=== PATIENT | female | born 1980 | race Caucasian/White ===

== ENCOUNTER 2019-10-24 11:31 | Emergency (ER) | payer OTHER ==
[~2019-10-24] VITALS: Ht 162.6 cm; Wt 73.9 kg
[2019-10-24] MEDS ORDERED: KETOROLAC 30 MG/ML VIAL. IVP ONE (12:15)
[2019-10-24 12:16] LABS: BASO # 0.1 x10^3/uL (0.0-0.2); BASO % 1 % (0-3); EOS # 0.1 x10^3/uL (0.0-0.7); EOS % 1 % (0-3); HEMOGLOBIN 14.2 g/dL (12.0-15.5); LYMPH # 1.6 x10^3/uL (1.0-4.8); LYMPH % 22 % (24-48); MEAN CORPUSCULAR HEMOGLOBIN 33 pg (25-35); MEAN CORPUSCULAR HGB CONC 34 g/dL (31-37); MEAN CORPUSCULAR VOLUME 97 fL (79-100); MONO # 0.6 x10^3/uL (0.0-1.1); MONO % 9 % (0-9); NEUT % 67 % (31-73); PLATELET COUNT 263 x10^3/uL (140-400); RED BLOOD COUNT 4.35 x10^6/uL (3.50-5.40); WHITE BLOOD COUNT 7.4 x10^3/uL (4.0-11.0)
[2019-10-24 12:25] LABS: CREATININE 0.7 mg/dL (0.6-1.0); GFR 92.7; POTASSIUM 3.7 mmol/L (3.5-5.1)
[2019-10-24 12:31] LABS: ALBUMIN 3.9 g/dL (3.4-5.0); ALBUMIN/GLOBULIN RATIO 1.1 (1.0-1.7); TOTAL BILIRUBIN 0.6 mg/dL (0.2-1.0); TOTAL PROTEIN 7.6 g/dL (6.4-8.2)
[2019-10-24] MEDS ORDERED: IOHEXOL 300 MG/ML 75 ML VIAL. IV ONE (12:45)
--- NOTE | 2019-10-24 13:08 | RAD ---
EXAM: Abdomen and pelvis CT with intravenous contrast. HISTORY: Pain. TECHNIQUE: Computed tomographic images of the abdomen and pelvis were obtained following the administration of intravenous contrast. Multiplanar reformatting was performed. *One or more of the following individualized dose reduction techniques were utilized for this examination: 1. Automated exposure control. 2. Adjustment of the mA and/or kV according to patient size. 3. Use of iterative reconstruction technique. COMPARISON: None. FINDINGS: Evaluation of the lower thorax demonstrates no infiltrate or pleural effusion. There are endplate of breast prostheses. There is posterior dependent atelectasis. The heart is normal in size. There are multiple hypodense lesions within the liver, the largest of which is seen within the inferior right hepatic lobe measuring 3.1 cm. The gallbladder, pancreas, stomach and adrenal glands are unremarkable. The spleen is upper normal in size. There is a dilated appendix with wall thickening and surrounding fatty stranding and trace fluid, consistent with acute appendicitis. No free air or drainable fluid collection/abscess is seen. There is no evidence of bowel obstruction. The uterus is unremarkable. There is a suspected complex left ovarian cyst or adjacent dominant follicular cysts within the left ovary measuring 3.0 cm in conglomerate. There is a prominent bilateral renal collecting system without evidence of an obstructing lesion. This may be due to the hydration status of the patient. There is no gio hydronephrosis. The aorta is normal in caliber. There is no lymphadenopathy. There is no suspicious osseous lesion. There are few benign bone islands. IMPRESSION: 1. Acute appendicitis. There is no evidence of perforation or abscess. 2. Multiple hypodense lesions throughout the liver. In the absence of known malignancy, these are likely cysts. The smallest lesions are too small to characterize, the possibility of tiny hemangiomas is not excluded. 3. Suspected 3.0 cm complex left ovarian cyst or adjacent left ovarian dominant follicles. 4. Prominent bilateral renal collecting system, without gio hydronephrosis. This can be due to the hydration status of the patient. Electronically signed by: Tasha Shannon MD (10/24/2019 1:05 PM) [place] [id number]
[2019-10-24] MEDS ORDERED: PIPERACILLIN/TAZOBACTAM 3.375 GM VIAL IV ONE (13:15)
[2019-10-24] MEDS ORDERED: PIPERACILLIN/TAZOBACTAM 3.375 GM in IV NORMAL SALINE 50ML 50 ML IV ONE (13:15)
[2019-10-24] MEDS ORDERED: IV NORMAL SALINE 50ML 50 ML ONE (13:16)
--- NOTE | 2019-10-24 13:19 | PHYS DOC ---
Past History Past Medical History: Hypertension, Ovarian Cyst, Other Past Surgical History: Other Additional Past Surgical Histo: breast augmentation Additional Alcohol Information: 1-2 glasses wine nightly Drug Use: None Adult General Chief Complaint Chief Complaint: ABDOMINAL PAIN HPI HPI Patient is a 39-year-old female who presented to ER today for evaluation of lower abdominal pain, left lower abdominal area more than the right lower abdominal area started last night become more severe this morning She took 800 mg ibuprofen this morning for the pain but did not get better so she came here for evaluation. She denies any nausea vomiting, no fever. She saids she had been experiencing this type abdominal pain off and on for several months. Patient was seen by her [facility] doctor, had pelvic ultrasound done but did not show any acute problem. Patient was put on control medication which she had been taking for one month already. Patient says she was experiencing the pain like this after her period every month. She denies any vaginal bleeding or discharge. All other ROS is negative unless otherwise noted in HPI Review of Systems Review of Systems See above Current Medications Current Medications Current Medications Medications (Trade) Dose Ordered Sig/Antoinette Start Time Stop Time Status Last Admin Dose Admin Iohexol (Omnipaque 300 Mg/ml) 75 ml 1X ONCE 10/24/19 12:45 10/24/19 12:46 DC 10/24/19 12:44 75 ML Ketorolac Tromethamine (Toradol 30mg Vial) 30 mg 1X ONCE 10/24/19 12:15 10/24/19 12:16 DC 10/24/19 12:28 30 MG Piperacillin Sod/ Tazobactam Sod (Zosyn) 3.375 gm STK-MED ONCE 10/24/19 13:15 10/24/19 13:16 DC Piperacillin Sod/ Tazobactam Sod 3.375 gm/Sodium Chloride 50 ml @ 100 mls/hr 1X ONCE 10/24/19 13:15 10/24/19 13:44 Sodium Chloride 50 ml @ As Directed STK-MED ONCE 10/24/19 13:16 10/24/19 13:17 DC Allergies Allergies Allergies Coded Allergies Type Severity Reaction Last Updated Verified codeine Allergy Unknown 10/24/19 Yes Physical Exam Physical Exam See above Constitutional: Well developed, well nourished, no acute distress, non-toxic appearance. [] HENT: Normocephalic, atraumatic, bilateral external ears normal, oropharynx moist, no oral exudates, nose normal. [] Eyes: PERRLA, EOMI, conjunctiva normal, no discharge. [] Neck: Normal range of motion, no tenderness, supple, no stridor. [] Cardiovascular:Heart rate regular rhythm, no murmur [] Lungs & Thorax: Bilateral breath sounds clear to auscultation [] Abdomen: Bowel sounds normal, soft, There is tenderness in suprapubic area, no rebound, no guarding, no masses, no pulsatile masses. [] Skin: Warm, dry, no erythema, no rash. [] Back: No tenderness, no CVA tenderness. [] Extremities: No tenderness, no cyanosis, no clubbing, ROM intact, no edema. [] Neurologic: Alert and oriented X 3, normal motor function, normal sensory function, no focal deficits noted. [] Psychologic: Affect normal, judgement normal, mood normal. [] Current Patient Data Vital Signs Vital Signs Date Time Temp Pulse Resp B/P (MAP) Pulse Ox O2 Delivery O2 Flow Rate FiO2 10/24/19 11:35 98.7 90 18 99 Room Air Lab Results Laboratory Tests Test 10/24/19 12:00 White Blood Count 7.4 x10^3/uL (4.0-11.0) Red Blood Count 4.35 x10^6/uL (3.50-5.40) Hemoglobin 14.2 g/dL (12.0-15.5) Hematocrit 42.0 % (36.0-47.0) Mean Corpuscular Volume 97 fL (79-100) Mean Corpuscular Hemoglobin 33 pg (25-35) Mean Corpuscular Hemoglobin Concent 34 g/dL (31-37) Red Cell Distribution Width 13.0 % (11.5-14.5) Platelet Count 263 x10^3/uL (140-400) Neutrophils (%) (Auto) 67 % (31-73) Lymphocytes (%) (Auto) 22 % (24-48) L Monocytes (%) (Auto) 9 % (0-9) Eosinophils (%) (Auto) 1 % (0-3) Basophils (%) (Auto) 1 % (0-3) Neutrophils # (Auto) 5.0 x10^3uL (1.8-7.7) Lymphocytes # (Auto) 1.6 x10^3/uL (1.0-4.8) Monocytes # (Auto) 0.6 x10^3/uL (0.0-1.1) Eosinophils # (Auto) 0.1 x10^3/uL (0.0-0.7) Basophils # (Auto) 0.1 x10^3/uL (0.0-0.2) Sodium Level 137 mmol/L (136-145) Potassium Level 3.7 mmol/L (3.5-5.1) Chloride Level 99 mmol/L (98-107) Carbon Dioxide Level 27 mmol/L (21-32) Anion Gap 11 (6-14) Blood Urea Nitrogen 9 mg/dL (7-20) Creatinine 0.7 mg/dL (0.6-1.0) Estimated GFR (Cockcroft-Gault) 92.7 BUN/Creatinine Ratio 13 (6-20) Glucose Level 98 mg/dL (70-99) Calcium Level 9.0 mg/dL (8.5-10.1) Total Bilirubin 0.6 mg/dL (0.2-1.0) Aspartate Amino Transferase (AST) 23 U/L (15-37) Alanine Aminotransferase (ALT) 30 U/L (14-59) Alkaline Phosphatase 65 U/L (46-116) Total Protein 7.6 g/dL (6.4-8.2) Albumin 3.9 g/dL (3.4-5.0) Albumin/Globulin Ratio 1.1 (1.0-1.7) Lipase 191 U/L (73-393) EKG EKG [] Radiology/Procedures Radiology/Procedures [][address] [id number] IMAGING REPORT Signed PATIENT: TODD MURPHY ACCOUNT: [id number] : 1980 LOCATION: ER AGE: 39 SEX: F EXAM STATUS: REG ER ORD. PHYSICIAN: ANNE MARIE ROA DO REASON: lower abdominal pain PROCEDURE: CT ABD PELV W/ IV CONTRST ONLY EXAM: Abdomen and pelvis CT with intravenous contrast. HISTORY: Pain. TECHNIQUE: Computed tomographic images of the abdomen and pelvis were obtained following the administration of intravenous contrast. Multiplanar reformatting was performed. *One or more of the following individualized dose reduction techniques were utilized for this examination: 1. Automated exposure control. 2. Adjustment of the mA and/or kV according to patient size. 3. Use of iterative reconstruction technique. COMPARISON: None. FINDINGS: Evaluation of the lower thorax demonstrates no infiltrate or pleural effusion. There are endplate of breast prostheses. There is posterior dependent atelectasis. The heart is normal in size. There are multiple hypodense lesions within the liver, the largest of which is seen within the inferior right hepatic lobe measuring 3.1 cm. The gallbladder, pancreas, stomach and adrenal glands are unremarkable. The spleen is upper normal in size. There is a dilated appendix with wall thickening and surrounding fatty stranding and trace fluid, consistent with acute appendicitis. No free air or drainable fluid collection/abscess is seen. There is no evidence of bowel obstruction. The uterus is unremarkable. There is a suspected complex left ovarian cyst or adjacent dominant follicular cysts within the left ovary measuring 3.0 cm in conglomerate. There is a prominent bilateral renal collecting system without evidence of an obstructing lesion. This may be due to the hydration status of the patient. There is no gio hydronephrosis. The aorta is normal in caliber. There is no lymphadenopathy. There is no suspicious osseous lesion. There are few benign bone islands. IMPRESSION: 1. Acute appendicitis. There is no evidence of perforation or abscess. 2. Multiple hypodense lesions throughout the liver. In the absence of known malignancy, these are likely cysts. The smallest lesions are too small to characterize, the possibility of tiny hemangiomas is not excluded. 3. Suspected 3.0 cm complex left ovarian cyst or adjacent left ovarian dominant follicles. 4. Prominent bilateral renal collecting system, without gio hydronephrosis. This can be due to the hydration status of the patient. Electronically signed by: Tasha Childs MD (10/24/2019 1:05 PM) [place] [id number] DICTATED AND SIGNED BY: TASHA CHILDS MD DATE: 10/24/19 [id number] CC: ALMA BAILEY MD; ANNE MARIE ROA DO ~ Course & Med Decision Making Course & Med Decision Making Pertinent Labs and Imaging studies reviewed. (See chart for details) PATIENT WAS GIVEN 3.375 GRAM OF ZOSYN IV. Patient is a 39-year-old female who was found to have acute appendicitis, no perforation, no abscess. There is no surgery available at this hospital, we [facility] for [facility] surgery evaluation and treatment. Dr. Moore accepted patient for transfer there. Discussed with Dr. Hernandez, general surgeon at [facility], WILL SEE PATIENT WHEN SHE GET THERE TODAY. Dragon Disclaimer Dragon Disclaimer This electronic medical record was generated, in whole or in part, using a voice recognition dictation system. Departure Departure: Impression: Primary Impression: Acute appendicitis Disposition: XFER T-TRM HOSP (Transfered to [facility], accepted by Dr. Moore) Condition: STABLE Referrals: ALMA BAILEY MD (PCP) ANNE MARIE ORA DO Oct 24, 2019 13:19
[2019-10-24 13:29] VITALS: BP 124/98
== END 2019-10-24 13:52 | disposition short-term general hospital (02) ==
LOC: ER 11:31
DX: K35.80 Unspecified acute appendicitis (principal); I10 Essential (primary) hypertension; Z88.5 Allergy status to narcotic agent
CPT/HCPCS: 36415; 74177; 80053; 83690; 85025; 96365; 96375; 99285; J1885; J2543; Q9967